=== PATIENT | female | born 1990 | race Two or more races ===

== ENCOUNTER 2023-02-08 19:11 | Emergency (ER) | payer OTHER ==
[~2023-02-08] VITALS: Ht 162.6 cm; Wt 68.9 kg
[2023-02-08 21:30] LABS: URINE APPEARANCE Clear; URINE BILIRRUBIN Negative (NEGATIVE); URINE BLOOD Large; URINE COLOR Yellow; URINE GLUCOSE Negative (NEGATIVE); URINE LEUKOCYTE Small; URINE NITRATE Negative; URINE PROTEIN Negative (NEGATIVE); URINE UROBILINOGEN 0.2 E.U./dl
[2023-02-08 21:31] LABS: HEMATOCRIT 39.8 % (36.0-45.00); HEMOGLOBIN 13.8 g/dL (12.0-15.00); MEAN CELL VOLUME 95.5 fL (80.00-100.00); MEAN CORPUSCULAR HGB CONC 34.6 g/dl (32.0-36.0); PLATELET COUNT 266 K/uL (150-450); RED BLOOD COUNT 4.16 M/uL (4.00-6.00); RED CELL DISTRIBUTION WIDTH 12.4 % (11.5-14.5)
[2023-02-08 21:34] LABS: URINE BACTERIA 758.4 uL (0.0-1933); URINE EPITHELIAL CELLS 30.7 uL (0.0-38.8); URINE RBC 6.7 uL (0.0-20.8); URINE WBC 60.4 uL (0.0-23.2)
[2023-02-08 21:44] LABS: INR 1.09; PARTIAL THROMBOPLASTIN TIME 28.3 SECONDS (22.0-34.0); PROTHROMBIN TIME 11.4 SECONDS (9.0-11.5)
[2023-02-08 21:51] LABS: ALBUMIN 4.2 gm/dL (3.4-5.0); BILIRUBIN TOTAL 0.35 mg/dL (0.3-1.2); CALCIUM 9.2 mg/dL (8.5-10.1); CREATININE SERUM 0.78 mg/dL (0.55-1.02); GFR 85.59; GLOBULINA 3.7 G/DL (2.4-3.5); POTASSIUM 3.76 mEq/L (3.5-5.1); TOTAL PROTEIN 7.9 gm/dL (6.4-8.2)
== END 2023-02-09 00:49 | disposition home or self-care (01) ==
LOC: ER 19:12
PROVIDERS: General Practice
DX: O03.9 Complete or unspecified spontaneous abortion without complication (principal)